=== PATIENT | female | born 1970 | race Caucasian/White ===

== ENCOUNTER 2017-09-19 03:23 | Emergency (ER) | payer MEDICAID, OTHER, SELFPAY ==
[~2017-09-19] VITALS: Ht 165.1 cm; Wt 79.0 kg
[2017-09-19] MEDS ORDERED: LIDOCAINE-MPF 2% ,5ML ONE (03:43)
[2017-09-19] MEDS ORDERED: LIDOCAINE-MPF 2% ,5ML INFIL ONE (04:00)
[2017-09-19] MEDS ORDERED: SULFAMETH./TRIMETHOPRIM DS 800MG/160MG TABLET PO ONE (04:00)
[2017-09-19] MEDS ORDERED: SULFAMETH./TRIMETHOPRIM DS 800MG/160MG TABLET ONE (04:13)
[2017-09-19] MEDS ORDERED: IBUPROFEN 200 MG TABLET ONE (04:13)
[2017-09-19 04:19] VITALS: BP 127/80
[2017-09-19] MEDS ORDERED: IBUPROFEN 200 MG TABLET PO ONE (04:30)
== END 2017-09-19 04:22 | disposition home or self-care (01) ==
LOC: ED 04:16
DX: L03.221 Cellulitis of neck (principal); L02.11 Cutaneous abscess of neck
CPT/HCPCS: 10060; 99283

== ENCOUNTER 2017-09-21 13:45 | Emergency (ER) | payer MEDICAID ==
[~2017-09-21] VITALS: Ht 165.1 cm; Wt 79.3 kg
[2017-09-21 13:47] VITALS: BP 166/84
== END 2017-09-21 15:18 | disposition home or self-care (01) ==
LOC: ED 15:12
DX: L02.91 Cutaneous abscess, unspecified (principal)
CPT/HCPCS: 99283

== ENCOUNTER 2019-06-15 05:57 | Emergency (ER) | payer SELFPAY ==
[~2019-06-15] VITALS: Ht 165.1 cm; Wt 80.0 kg
--- NOTE | 2019-06-15 06:09 | NUR ---
THIS IS A 48Y F BIB EMS THAT COMES IN THIS MORNING WITH THE VERBAL COMPLAINT OF SCIATICA PAIN. PT STS SHE WAS DIAGNOSED A MONTH AGO AT [facility] AND NOW WHEN SHE IS ON HER PERIOD IT FLARES UP. WHEN ASKED WHERE HER PAIN IS, PT GESTURES TO LOWER BACK AND ABDOMEN. PER PT "I HAVE LIKE FOUR ASPIRIN IN ME." PT ALSO REPORTS TAKING TYLENOL AND SOME NIGHT TIME COLD MEDICINE, (DENIES COLD/ ILLNESS SYMPTOMS.) PT AMBULATED FROM EMS [facility] AND TRANSFERED SELF TO ER [facility]. PT CONNECTED TO MONITORING VSS, SPEAKING IN FULL SENTENCES. PT REQUESTING WATER AND ICE, PT EDUCATED ON NEED TO WAIT FOR TESTING BEFORE FLUIDS.
--- NOTE | 2019-06-15 06:44 | NUR ---
MD AT BEDSIDE TO ASSESS PT
--- NOTE | 2019-06-15 06:56 | NUR ---
Report from Meg HOLDEN. Pt ambulatory to bathroom and back to bed with steady gait. Awaiting further orders.
[2019-06-15] MEDS ORDERED: DIAZEPAM 5 MG TABLET PO ONE (07:00)
[2019-06-15] MEDS ORDERED: DIAZEPAM 5 MG TABLET ONE (07:23)
--- NOTE | 2019-06-15 07:26 | NUR ---
Pt medicated per MAR, provided water per request. Pt denies other needs.
[2019-06-15 07:46] LABS: MICROSCOPIC INDICATED
[2019-06-15 07:47] LABS: CULTURE INDICATED? YES
[2019-06-15 07:54] LABS: AMPHETAMINE SCREEN, URINE Positive (Negative); BARBITURATE SCREEN, URINE Negative (Negative); BENZODIAZEPINE SCREEN, URINE Negative (Negative); CANNABINOID SCREEN, URINE Positive (Negative); COCAINE SCREEN, URINE Negative (Negative); METHADONE SCREEN, URINE Negative (Negative); OPIATE SCREEN, URINE Negative (Negative)
--- NOTE | 2019-06-15 08:14 | NUR ---
Pt resting in bed with eyes closed, resp even and unlabored, NADN.
[2019-06-15] MEDS ORDERED: KETOROLAC 30 MG/1 ML IM ONE (09:00)
[2019-06-15] MEDS ORDERED: KETOROLAC 60 MG/2 ML ONE (09:05)
--- NOTE | 2019-06-15 09:08 | NUR ---
Pt medicated for continued 10/10 R sided sciatica pain.
--- NOTE | 2019-06-15 09:49 | NUR ---
Pt states pain med given "barely helped. Like barely rounded the corners." Pt resting in bed, states pain /.
--- NOTE | 2019-06-15 09:49 | NUR ---
updated on this.
[2019-06-15 10:15] VITALS: BP 145/97
== END 2019-06-15 10:17 | disposition home or self-care (01) ==
LOC: ED 06:27
DX: M54.5 Low back pain (principal); F17.200 Nicotine dependence, unspecified, uncomplicated
CPT/HCPCS: 80307; 81001; 87086; 96372; 99283; J1885